=== PATIENT | male | born 1950 | race Two or more races ===

== ENCOUNTER 2018-06-23 01:01 | Emergency (ER) | payer OTHER ==
[~2018-06-23] VITALS: Ht 152.4 cm; Wt 66.2 kg
[2018-06-23] MEDS ORDERED: VASOTEC10 MG (01:10)
[2018-06-23] MEDS ORDERED: TRIAMCINOLONE A15 G1 TOP (04:34)
[2018-06-23] MEDS ORDERED: CIPRO500 MG PO (04:34)
== END 2018-06-23 04:48 | disposition home or self-care (01) ==
LOC: ER 01:01
DX: R21 Rash and other nonspecific skin eruption (principal); S80.862S Insect bite (nonvenomous), left lower leg, sequela; S80.861S Insect bite (nonvenomous), right lower leg, sequela; W57.XXXS Bitten or stung by nonvenomous insect and other nonvenomous arthropods, sequela

== ENCOUNTER 2019-01-02 11:17 | Emergency (ER) | payer OTHER ==
[~2019-01-02] VITALS: Ht 170.2 cm; Wt 69.4 kg
[~2019-01-02 11:17] MED LIST: CIPRO500 MG PO; TRIAMCINOLONE A15 G1 TOP; VASOTEC10 MG
[2019-01-02] MEDS ORDERED: JANUMET 50-5001 EACH (11:30)
== END 2019-01-02 14:52 | disposition home or self-care (01) ==
LOC: ER 11:17
DX: B34.9 Viral infection, unspecified (principal)